=== PATIENT | female | born 1965 | race Caucasian/White ===

== ENCOUNTER 2018-01-26 05:54 | Day surgery (SDC) | payer SELFPAY ==
[~2018-01-26] VITALS: Ht 156.2 cm; Wt 63.8 kg
[2018-01-26 06:20] VITALS: BP 110/68; PULSE 75; TEMP 98.3
[2018-01-26] MEDS ORDERED: NORCO 325 MG-7.1 TAB PO (09:26)
[2018-01-26 10:20] VITALS: BP 122/70; PULSE 79; TEMP 98.6
[2018-01-26 10:35] VITALS: BP 113/59; PULSE 67
[2018-01-26 10:50] VITALS: BP 115/65; PULSE 72
[2018-01-26 11:05] VITALS: BP 140/75; PULSE 78
== END 2018-01-26 11:35 | disposition home or self-care (01) ==
LOC: SDCO 05:54 → INPTSU 06:30 → SDCO 09:45
DX: S82.851A Displaced trimalleolar fracture of right lower leg, initial encounter for closed fracture (principal); X50.0XXA Overexertion from strenuous movement or load, initial encounter; F17.210 Nicotine dependence, cigarettes, uncomplicated; Z80.9 Family history of malignant neoplasm, unspecified
CPT/HCPCS: OP; C1713; J0690; J1100; J1885; J2270; J2405; J2704; J3010; J7120

== ENCOUNTER 2018-05-18 09:17 | Day surgery (SDC) | payer SELFPAY ==
[2018-05-18] VITALS (7 sets, daily range): BP systolic 118–132; BP diastolic 48–75; PULSE 56–78; TEMP 97.2–98
[~2018-05-18] VITALS: Ht 154.9 cm; Wt 63.0 kg
[~2018-05-18 09:17] MED LIST: NORCO 325 MG-7.1 TAB PO
[2018-05-18] MEDS ORDERED: NORCO 325 MG-7.1 TAB PO (11:45)
== END 2018-05-18 13:35 | disposition home or self-care (01) ==
LOC: SDCO 09:17
DX: T84.84XA Pain due to internal orthopedic prosthetic devices, implants and grafts, initial encounter (principal); T81.49XA Infection following a procedure, other surgical site, initial encounter; F17.210 Nicotine dependence, cigarettes, uncomplicated; S82.851D Displaced trimalleolar fracture of right lower leg, subsequent encounter for closed fracture with routine healing; L92.3 Foreign body granuloma of the skin and subcutaneous tissue; K21.9 Gastro-esophageal reflux disease without esophagitis; F41.9 Anxiety disorder, unspecified; Z88.0 Allergy status to penicillin; Z90.49 Acquired absence of other specified parts of digestive tract
CPT/HCPCS: J1100; J2405; J2704; J3010; J7120